=== PATIENT | female | born 1950 | race Caucasian/White ===

== ENCOUNTER 2020-07-04 07:24 | Outpatient (REF) | payer MEDICARE, SELFPAY | END 2020-07-04 07:25 | disposition home or self-care (01) | LOC: HO.MMNH2L 07:24 | PROVIDERS: Visit Provider Family Medicine | DX: Z20.828 Contact with and (suspected) exposure to other viral communicable diseases (principal) | CPT/HCPCS: 87635 ==

== ENCOUNTER 2020-07-11 19:02 | Outpatient (REF) | payer MEDICARE, SELFPAY | END 2020-07-11 19:03 | disposition home or self-care (01) | LOC: HO.LNP 19:02 | PROVIDERS: Visit Provider Family Medicine | DX: Z20.828 Contact with and (suspected) exposure to other viral communicable diseases (principal) | CPT/HCPCS: 87635 ==

== ENCOUNTER 2020-07-17 06:47 | Outpatient (REF) | payer MEDICARE, SELFPAY | END 2020-07-17 06:48 | disposition home or self-care (01) | LOC: HO.MMNH2L 06:47 | PROVIDERS: Visit Provider Family Medicine | DX: Z20.828 Contact with and (suspected) exposure to other viral communicable diseases (principal) | CPT/HCPCS: 87635 ==

== ENCOUNTER 2020-07-25 07:05 | Outpatient (REF) | payer MEDICARE, SELFPAY | END 2020-07-25 07:06 | disposition home or self-care (01) | LOC: HO.MMNH2L 07:05 | PROVIDERS: Visit Provider Family Medicine | DX: Z20.828 Contact with and (suspected) exposure to other viral communicable diseases (principal) | CPT/HCPCS: U0003 ==

== ENCOUNTER 2020-10-13 06:48 | Outpatient (REF) | payer SELFPAY ==
[2020-10-13 07:33] LABS: Hematocrit 34.6 % (37-47); Hemoglobin 11.4 g/dl (12.0-16.0); Mean Corpuscular HGB Conc 32.9 g/dl (31.0-35.0); Mean Corpuscular Hemoglobin 29.2 pg (27.0-33.0); Mean Corpuscular Volume 88.5 fL (80-98); Mean Platelet Volume 10.6 fL (9.4-12.3); Platelet Count 238 X10*3/uL (160-400); Red Blood Count 3.91 X10*6/uL (4.20-5.50); Red Cell Distribution Width 12.6 % (11.0-16.0); White Blood Count 7.6 X10*3/uL (4.8-10.8)
[2020-10-13 08:10] LABS: Thyroid Stimulating Hormone 0.58 uIU/mL (0.32-4.0); Vitamin D 25-OH Total 13.4 ng/mL (>30)
[2020-10-13 08:26] LABS: Alanine Aminotransferase 9 U/L (0-31); Albumin Level 3.6 g/dL (3.5-5.0); Alkaline Phosphatase 280 U/L (39-117); Anion Gap 19 (12-20); Aspartate Amino Transferase 9 U/L (5-31); Bilirubin Total 0.6 mg/dL (0.0-1.0); Blood Urea Nitrogen 38 mg/dL (9-16); Calcium 8.7 mg/dL (8.4-10.2); Carbon Dioxide 23 mmol/L (22-29); Chloride 93 mmol/L (96-108); Estimated Glomerular Filt Rate 10; Glucose Random 137 mg/dL (60-115); Potassium 3.8 mmol/l (3.3-5.1); Sodium 131 mmol/L (135-145); Total Protein 6.5 g/dL (6.5-8.0)
[2020-10-13 09:00] LABS: Estimated Average Glucose 157 mg/dL; Hemoglobin A1c % 7.1 %
== END 2020-10-13 06:49 | disposition home or self-care (01) ==
LOC: HO.MMNH2L 06:48
PROVIDERS: Visit Provider Family Medicine
DX: N18.6 End stage renal disease (principal)
CPT/HCPCS: 36415; 80053; 82306; 83036; 84443; 85027

== ENCOUNTER 2020-12-20 06:56 | Outpatient (REF) | payer MEDICAID, SELFPAY ==
[2020-12-20 07:14] LABS: Hematocrit 29.7 % (37-47); Hemoglobin 9.7 g/dl (12.0-16.0); Mean Corpuscular HGB Conc 32.7 g/dl (31.0-35.0); Mean Corpuscular Hemoglobin 29.5 pg (27.0-33.0); Mean Corpuscular Volume 90.3 fL (80-98); Mean Platelet Volume 10.7 fL (9.4-12.3); Platelet Count 236 X10*3/uL (160-400); Red Blood Count 3.29 X10*6/uL (4.20-5.50); Red Cell Distribution Width 12.9 % (11.0-16.0); White Blood Count 12.8 X10*3/uL (4.8-10.8)
[2020-12-20 07:44] LABS: Anion Gap 25 (12-20); Carbon Dioxide 17 mmol/L (22-29); Chloride 96 mmol/L (96-108); Potassium 4.6 mmol/L (3.3-5.1); Sodium 133 mmol/L (135-145)
[2020-12-20 07:45] LABS: Alanine Aminotransferase 7 U/L (0-31); Albumin Level 3.2 g/dL (3.5-5.0); Alkaline Phosphatase 206 U/L (39-117); Aspartate Amino Transferase 8 U/L (5-31); Bilirubin Total 0.8 mg/dL (0.0-1.0); Blood Urea Nitrogen 76 mg/dL (9-16); Calcium 9.2 mg/dL (8.4-10.2); Estimated Glomerular Filt Rate 5; Glucose Random 206 mg/dL (60-115); Total Protein 5.8 g/dL (6.5-8.0)
== END 2020-12-20 06:57 | disposition home or self-care (01) ==
LOC: HO.MMNH2L 06:56
PROVIDERS: Visit Provider Family Medicine
DX: N18.6 End stage renal disease (principal)
CPT/HCPCS: 36415; 80053; 85027

== ENCOUNTER 2020-12-20 10:58 | Inpatient (IN) | payer MEDICARE, MEDICAID, SELFPAY ==
[2020-12-20] VITALS (8 sets, daily range): BP systolic 128–163; BP diastolic 38–64; PULSE 50–56; RESP 14–18; TEMP 36.2–37.1; O2SAT 87–96; BMI 36.6; BMI 35.7
--- NOTE | ~2020-12-20 | XR_ITS ---
EXAMINATION: XR CHEST CLINICAL INFORMATION: Hypoxic COMPARISON: Chest x-ray 12/01/2018 TECHNIQUE: 2 views of the chest were obtained. FINDINGS: Cardiac silhouette is normal in size. Central pulmonary vasculature and interstitial markings are diffusely coarsened. There is no gross lobar consolidation. No pleural effusion or pneumothorax. Vascular stent projects over the left axilla. XR/XR chest 2V IMPRESSION: Radiographic findings are most suggestive of volume overload.
--- NOTE | ~2020-12-20 | CT_ITS ---
EXAMINATION: CT HIP WITHOUT CONTRAST, LEFT CLINICAL INFORMATION: Negative left hip x-ray. Pain. COMPARISON: None TECHNIQUE: Axial 2 mm thin and reformatted 1 mm thin sagittal and coronal images of left hip were obtained. This CT examination was performed using dose optimization techniques as appropriate, variously including the following: *Automated exposure control *Adjustment of mA and/or kV according to patient size (this includes techniques or standardized protocols for targeted exams where dose is matched to indication/reason for exam; i.e. extremities or head) *Use of iterative reconstruction technique DLP: 339 mGy-cm FINDINGS: There is minimal loss of left hip joint space with no visible acute fracture, dislocation or subluxation seen. The soft tissues are normal. CT/CT hip LT wo con IMPRESSION: Unremarkable left hip exam.
--- NOTE | 2020-12-20 12:16 | ECG_ITS ---
Test Reason : WEAKNESS Blood Pressure : / mmHG Vent. Rate : 053 BPM Atrial Rate : 053 BPM P-R Int : 244 ms QRS Dur : 132 ms QT Int : 460 ms P-R-T Axes : 059 -12 054 degrees QTc Int : 431 ms Sinus bradycardia with 1st degree A-V block Right bundle branch block Cannot rule out Anterior infarct (cited on or before 20-DEC-2020) Abnormal ECG When compared with ECG of 02-DEC-2018 07:40, Questionable change in initial forces of Anteroseptal leads T wave inversion no longer evident in Inferior leads Nonspecific T wave abnormality no longer evident in Anterior leads Referred By: Adwoa Dietrich Electronically Signed By:SERGIO JACK
--- NOTE | 2020-12-20 12:19 | ED.GENADULT ---
HPI - General Adult General Chief complaint: General Medical Stated complaint: LOW BACK PAIN S/P SAT TO HARD INTO W/C PER SNF Time Seen by Provider: 12/20/20 12:04 Source: EMS Mode of arrival: EMS Limitations: no limitations History of Present Illness HPI narrative: 70 yo female with past medical history of anemia, legally blind, Diabetes, End stage renal disease (, , tuesday), GERD (gastroesophageal reflux disease), HTN (hypertension), Hyperlipemia, Obesity here with complaints of left hip/buttocks pain s/p injury 2 days ago. Patient tells me that she sat down very hard in her wheelchair on and felt a snapping sensation in her left hip. Since then she has had pain which is [facility]relie[facility] She tells me due to the pain she did not go to dialysis on . She is also complaining of bilateral rib pain left greater than right with some mild shortness of breath. Noted to be hypoxic 88% for EMS. Patient is not on home oxygen. Denies fevers, chills, vomiting, diarrhea. Denies striking her ribs during the fall. Denies head injury or loss of consciousness. Related Data Home Medications Medication Instructions Recorded Confirmed B complex with C 20-folic acid 1 cap PO DAILY 12/20/20 12/20/20 [Triphrocaps] acetaminophen 650 mg PO QID PRN MDD 3000mg 12/20/20 12/20/20 amlodipine 10 mg PO DAILY 12/20/20 12/20/20 bisacodyl [Dulcolax (bisacodyl)] 10 mg CA DAILY PRN 12/20/20 12/20/20 dextrose [Glucose Gel] 1 ea PO NEEDED 12/20/20 12/20/20 diclofenac sodium 2 g TOPICAL QID 12/20/20 12/20/20 glucagon HCl [Glucagon (HCl) 1 mg SUBCUT Q20M PRN 12/20/20 12/20/20 Emergency Kit] insulin glargine See Protocol SUBCUT DAILY 12/20/20 12/20/20 insulin lispro 20 unit SUBCUT BEDTIME 12/20/20 12/20/20 insulin lispro [Humalog U-100 1 sliding scale dose SUBCUT 12/20/20 12/20/20 Insulin] USEASDIRECTD lidocaine-prilocaine See Rx Instructions .ROUTE .COMPLEX 12/20/20 12/20/20 omeprazole 20 mg PO DAILY 12/20/20 12/20/20 ondansetron HCl [Zofran] 4 mg PO Q8H PRN 12/20/20 12/20/20 rosuvastatin [Crestor] 5 mg PO DAILY 12/20/20 12/20/20 sodium phosphates [Fleet Enema] 118 ml CA DAILY PRN 12/20/20 12/20/20 Allergies Allergy/AdvReac Type Severity Reaction Status Date / Time bacitracin [Bacitracin] Allergy Mild RASH Unverified 06/12/20 17:37 egg [Egg] Allergy Mild UNKNOWN Unverified 06/12/20 17:37 hydrogen peroxide Allergy Mild RASH Unverified 06/12/20 17:37 [Hydrogen Peroxide] strawberry [[place]] Allergy Mild BLISTERS Unverified 06/12/20 17:37 acetaminophen [Percocet] Allergy Unknown Verified 07/12/18 00:00 bacitracin Allergy Unknown redness Unverified 10/23/19 00:00 eggs Allergy Unknown itchy, Unverified 10/23/19 00:00 rash--skin only oxycodone [Percocet] Allergy Unknown Verified 07/12/18 00:00 Sulfa (Sulfonamide Allergy Unknown Verified 07/12/18 00:00 Antibiotics) Shellfish Allergy Mild UNKNOWN Uncoded 06/12/20 17:37 baking soda Allergy Unknown Uncoded 07/12/18 00:00 elastic Allergy Unknown itchy Uncoded 10/23/19 00:00 hydrogen peroxide Allergy Unknown redness Uncoded 10/23/19 00:00 latex Allergy Unknown itchy Uncoded 10/23/19 00:00 seafood Allergy Unknown itchy Uncoded 10/23/19 00:00 skin, rash shellfish Allergy Unknown Uncoded 07/12/18 00:00 strawberry Allergy Unknown Uncoded 10/23/19 00:00 Sulfamethoxazole Allergy Unknown vomiting Uncoded 10/23/19 00:00 Atorvastatin AdvReac Unknown back Uncoded 07/12/18 00:00 pains, abdominal pains, myalgias Review of Systems Review of Systems: Yes all other systems are reviewed and are negative Constitutional: Constitutional: Reports no additional constitutional complaints, Denies body ache(s), Denies chills, Denies fever(s), Denies headache(s) and Denies weakness Eyes: Eyes: Reports no additional eye complaints and Denies change in vision ENT: Reports system reviewed and no additional complaints, except as documented, Denies dizziness, Denies headache(s), Denies nasal congestion, Denies nasal discharge and Denies neck pain Cardiovascular: Cardiovascular: Reports no additional cardiovascular complaints, Denies chest pain, Denies leg edema and Denies dyspnea Respiratory: Respiratory: Reports no additional respiratory complaints, Denies cough and Denies dyspnea Gastrointestinal: Gastrointestinal: Reports no additional gastrointestinal complaints, Denies abdominal pain, Denies diarrhea, Denies nausea and Denies vomiting Genitourinary: Genitourinary: Reports no additional female genitourinary complaints and Denies urinary incontinence Musculoskeletal: Musculoskeletal: Reports no additional musculoskeletal complaints, Denies back pain, Reports arthralgias, Denies joint swelling, Denies neck pain, Denies numbness and Denies tingling Integumentary/Breasts: Skin/Breast: Reports system reviewed and no additional complaints, except as docu and Denies rash Neurologic: Reports system reviewed and no additional complaints, except as documented, Denies Abnormal speech present, Denies dizziness, Denies headache(s), Denies numbness, Denies tingling and Denies weakness PMFSH Past Medical History Attestation statement: The following information was validated with the patient. Source: old records reviewed and nursing notes reviewed Medical History Anemia Blind Diabetes End stage renal disease GERD (gastroesophageal reflux disease) HTN (hypertension) Hyperlipemia Obesity Social History Social History Smoked in Last 30 Days: No Use of substances other than those prescribed or required for medical reasons: No Advance Directives: Yes Advance Directives Information Provided: Yes Advance Directives on File: No Advance Directives Date on File: 12/21/07 Physical Exam Vital Signs: Vital Signs: Last Vital Signs Temp 98.6 F 12/20/20 15:16 Pulse 50 12/20/20 15:16 Resp 18 12/20/20 15:52 BP 141/64 H 12/20/20 15:52 Pulse Ox 95 12/20/20 15:16 Body Mass Index 36.6 Const: General: cooperative, healthy appearing, comfortable and no acute distress Orientation/consciousness: patient oriented x3 Limitations: no limitations HENMT: Head: Yes normal to inspection Ears: hearing grossly normal bilaterally General nose exam: Normal external nose present Face and sinus: Yes normal facial exam Mouth: Normal oral and palatal mucosa present Throat: Yes posterior oropharynx normal Eyes: General: appearance normal, both eyes and all related structures Pupils: Equal, round and reactive pupils present Neck: Neck: Yes normal visual inspection Chest: Other: L>R anterior and posterior rib pain with no ecchymosis, crepitus or deformity. Worsened with deep breathing and palpation Chest palpation & inspection: normal inspection of the chest Resp: Effort & Inspection: normal respiratory effort Auscultation: clear to auscultation bilaterally Cardio: Rate: regular rate Rhythm: regular rhythm Peripheral pulses: Peripheral pulses 2+ throughout GI: Inspection: Yes normal to inspection Palpation (GI): Soft to palpation and nontender Auscultation: normal bowel sounds Back/Spine/Pelvis: Thoracic/Lumbar Spine: thoracic and lumbar spine normal to inspection Skin: General skin exam: no rashes or lesions noted Neuro: General: patient oriented x3, no focal motor deficits and normal sensation to monofilament Cranial nerves: Yes Equal, round and reactive pupils present Cognition (Neuro): normal cognition Speech: No Abnormal speech present Gait exam (Neuro): Normal gait present Motor exam (neuro): 5/5 motor strength present throughout Extrem: Other: To the left posterior hip and lateral hip there is tenderness as well as in the buttocks. There is no obvious deformity, shortening or rotation of the extremity. Pain with ROM. General: Yes normal to inspection, Yes no joint enlargement and Yes edema (1+nonpitting edema extending over the ankles. No warmth/.erythema. 2 +puls) Course Course Course Narrative: 70-year-old female here with complaints of left hip and buttocks pain status post injury 2 days ago with negative x-rays done outpatient [facility]. Also complaining of bilateral rib pain with some mild shortness of breath with no cough or fever. Patient missed 1 day of dialysis and was noted to be hypoxic 88% on room air for EMS. On arrival has tenderness over the posterior and lateral left hip with no obvious deformity, shortening or rotation but does have pain with range of motion. X-rays negative him yesterday. Due to continued pain will check CT hip to eval for fracture. Also complaining of bilateral rib pain with some mild shortness of breath, hypoxia and a missed dialysis today. Noted to have a low-grade fever on arrival 99.9 rectal. Will check chest x-ray, UA, labs, EKG, COVID screen. 1320-labs show renal failure. Potassium normal. Elevated troponin which is likely secondary to creatinine and not from ACS. EKG shows no ischemic changes. We will plan for repeat 3 hour troponin. 1445-UA c/w UTI. At this time infection is suspected. Antibiotics ordered. Due to worsening renal function, missed dialysis today and hypoxia with chest x-ray concerning for fluid overload will discuss with nephrology for dialysis today. 1450-discussed with Dr. Moreira who arranged for dialysis today. Discussed with Dr. Prasad who admitted the patient. Medical Decision Making MDM Narrative Medical decision making narrative: Viral syndrome, pneumonia, chest wall strain versus contusion, PE, ACS UTI, COVID-19, CHF/missed dialysis fx vs contusion vs sprain Lab Data Result diagrams: 12/20/20 12:41 12/20/20 12:41 Labs: Lab Results 12/20/20 12/20/20 12/20/20 Range/Units 12:41 12:41 12:41 WBC 11.9 H (4.8-10.8) X10*3/uL RBC 3.19 L (4.20-5.50) X10*6/uL Hgb 9.5 L (12.0-16.0) g/dl Hct 29.1 L (37-47) % MCV 91.2 (80-98) fL MCH 29.8 (27.0-33.0) pg MCHC 32.6 (31.0-35.0) g/dl RDW 13.0 (11.0-16.0) % Plt Count 236 (160-400) X10*3/uL MPV 10.8 (9.4-12.3) fL Immature Gran % (Auto) 0.6 H (0.0-0.4) % Neut % (Auto) 85.5 H (45-73) % Lymph % (Auto) 7.9 L (20-40) % [place] % (Auto) 5.6 (2-11) % Eos % (Auto) 0.2 (0-4) % Baso % (Auto) 0.2 (0-2) % Lymph # (Auto) 0.9 L (1.2-4.9) X10*3/uL [place] # (Auto) 0.7 (0.1-1.2) X10*3/uL Eos # (Auto) 0.0 (0.0-0.4) X10*3/uL Baso # (Auto) 0.0 (0.0-0.2) X10*3/uL Abs Immat Gran (auto) 0.07 H (0.00-0.03) X10*3/uL Absolute Neuts (auto) 10.1 H (2.0-8.3) X10*3/uL Absolute Nucleated RBC 0.000 (0.0-0.012) X10*3/uL Nucleated RBC % (auto) 0.0 (0.0-0.2) /100WBC PT 14.1 H (10.8-13.0) SEC INR 1.2 H (0.9-1.1) Sodium 132 L (135-145) mmol/L Potassium 5.0 (3.3-5.1) mmol/L Chloride 96 (96-108) mmol/L Carbon Dioxide 14 L (22-29) mmol/L Anion Gap 27 H (12-20) BUN 82 H* (9-16) mg/dL Creatinine 8.35 H* (0.5-1.4) mg/dL Estim Creat Clear Calc 6.4 Estimated GFR 5 POC Glucose (60-115) mg/dL Random Glucose 266 H (60-115) mg/dL Lactic Acid (0.5-2.0) mmol/L Calcium 9.2 (8.4-10.2) mg/dL Magnesium 2.0 (1.6-2.6) mg/dL Total Bilirubin 0.4 (0.0-1.0) mg/dL Direct Bilirubin < 0.2 (0.0-0.5) mg/dL AST 14 D (5-31) U/L ALT < 6 (0-31) U/L Alkaline Phosphatase 198 H (39-117) U/L Troponin I High Sens (<3.5-17.0) ng/L Total Protein 6.2 L (6.5-8.0) g/dL Albumin 3.1 L (3.5-5.0) g/dL Urine Color Urine Appearance Urine pH (5.0-8.0) Ur Specific [place] (1.005-1.025) Urine Protein (NEG-TRACE) MG/DL Urine Glucose (UA) (NEG) MG/DL Urine Ketones (NEG) MG/DL Urine Blood (NEG) Urine Nitrite (NEG) Ur Leukocyte Esterase (NEG) Urine RBC (0) /HPF Urine WBC (0-4) /HPF Urine WBC Clumps Ur Squamous Epith Cells /LPF Urine Bacteria /LPF COVID-19 ([facility]UANITA) (Negative) COVID-19 Clin Com 12/20/20 12/20/20 12/20/20 Range/Units 12:41 12:41 12:45 WBC (4.8-10.8) X10*3/uL RBC (4.20-5.50) X10*6/uL Hgb (12.0-16.0) g/dl Hct (37-47) % MCV (80-98) fL MCH (27.0-33.0) pg MCHC (31.0-35.0) g/dl RDW (11.0-16.0) % Plt Count (160-400) X10*3/uL MPV (9.4-12.3) fL Immature Gran % (Auto) (0.0-0.4) % Neut % (Auto) (45-73) % Lymph % (Auto) (20-40) % [place] % (Auto) (2-11) % Eos % (Auto) (0-4) % Baso % (Auto) (0-2) % Lymph # (Auto) (1.2-4.9) X10*3/uL [place] # (Auto) (0.1-1.2) X10*3/uL Eos # (Auto) (0.0-0.4) X10*3/uL Baso # (Auto) (0.0-0.2) X10*3/uL Abs Immat Gran (auto) (0.00-0.03) X10*3/uL Absolute Neuts (auto) (2.0-8.3) X10*3/uL Absolute Nucleated RBC (0.0-0.012) X10*3/uL Nucleated RBC % (auto) (0.0-0.2) /100WBC PT (10.8-13.0) SEC INR (0.9-1.1) Sodium (135-145) mmol/L Potassium (3.3-5.1) mmol/L Chloride (96-108) mmol/L Carbon Dioxide (22-29) mmol/L Anion Gap (12-20) BUN (9-16) mg/dL Creatinine (0.5-1.4) mg/dL Estim Creat Clear Calc Estimated GFR POC Glucose (60-115) mg/dL Random Glucose (60-115) mg/dL Lactic Acid 1.6 (0.5-2.0) mmol/L Calcium (8.4-10.2) mg/dL Magnesium (1.6-2.6) mg/dL Total Bilirubin (0.0-1.0) mg/dL Direct Bilirubin (0.0-0.5) mg/dL AST (5-31) U/L ALT (0-31) U/L Alkaline Phosphatase (39-117) U/L Troponin I High Sens 81.8 H (<3.5-17.0) ng/L Total Protein (6.5-8.0) g/dL Albumin (3.5-5.0) g/dL Urine Color Urine Appearance Urine pH (5.0-8.0) Ur Specific [place] (1.005-1.025) Urine Protein (NEG-TRACE) MG/DL Urine Glucose (UA) (NEG) MG/DL Urine Ketones (NEG) MG/DL Urine Blood (NEG) Urine Nitrite (NEG) Ur Leukocyte Esterase (NEG) Urine RBC (0) /HPF Urine WBC (0-4) /HPF Urine WBC Clumps Ur Squamous Epith Cells /LPF Urine Bacteria /LPF COVID-19 ([facility]UANITA) Negative (Negative) COVID-19 Clin Com See Note 12/20/20 12/20/20 12/20/20 Range/Units 14:21 15:41 15:42 WBC (4.8-10.8) X10*3/uL RBC (4.20-5.50) X10*6/uL Hgb (12.0-16.0) g/dl Hct (37-47) % MCV (80-98) fL MCH (27.0-33.0) pg MCHC (31.0-35.0) g/dl RDW (11.0-16.0) % Plt Count (160-400) X10*3/uL MPV (9.4-12.3) fL Immature Gran % (Auto) (0.0-0.4) % Neut % (Auto) (45-73) % Lymph % (Auto) (20-40) % [place] % (Auto) (2-11) % Eos % (Auto) (0-4) % Baso % (Auto) (0-2) % Lymph # (Auto) (1.2-4.9) X10*3/uL [place] # (Auto) (0.1-1.2) X10*3/uL Eos # (Auto) (0.0-0.4) X10*3/uL Baso # (Auto) (0.0-0.2) X10*3/uL Abs Immat Gran (auto) (0.00-0.03) X10*3/uL Absolute Neuts (auto) (2.0-8.3) X10*3/uL Absolute Nucleated RBC (0.0-0.012) X10*3/uL Nucleated RBC % (auto) (0.0-0.2) /100WBC PT (10.8-13.0) SEC INR (0.9-1.1) Sodium (135-145) mmol/L Potassium (3.3-5.1) mmol/L Chloride (96-108) mmol/L Carbon Dioxide (22-29) mmol/L Anion Gap (12-20) BUN (9-16) mg/dL Creatinine (0.5-1.4) mg/dL Estim Creat Clear Calc Estimated GFR POC Glucose 219 H (60-115) mg/dL Random Glucose (60-115) mg/dL Lactic Acid (0.5-2.0) mmol/L Calcium (8.4-10.2) mg/dL Magnesium (1.6-2.6) mg/dL Total Bilirubin (0.0-1.0) mg/dL Direct Bilirubin (0.0-0.5) mg/dL AST (5-31) U/L ALT (0-31) U/L Alkaline Phosphatase (39-117) U/L Troponin I High Sens 63.7 H (<3.5-17.0) ng/L Total Protein (6.5-8.0) g/dL Albumin (3.5-5.0) g/dL Urine Color YELLOW Urine Appearance CLOUDY Urine pH 7.0 (5.0-8.0) Ur Specific [place] 1.025 (1.005-1.025) Urine Protein 2+ H (NEG-TRACE) MG/DL Urine Glucose (UA) 250 H (NEG) MG/DL Urine Ketones 5 (NEG) MG/DL Urine Blood 2+ H (NEG) Urine Nitrite NEG (NEG) Ur Leukocyte Esterase TRACE H (NEG) Urine RBC 15-29 H (0) /HPF Urine WBC TNTC H (0-4) /HPF Urine WBC Clumps NOTED Ur Squamous Epith Cells 2+ /LPF Urine Bacteria 4+ /LPF COVID-19 ([facility]ITA) (Negative) COVID-19 Clin Com Imaging Data Chest x-ray: Attestation: I personally reviewed and interpreted this imaging study as follows: Radiologist's impression: EXAMINATION: XR CHEST CLINICAL INFORMATION: Hypoxic COMPARISON: Chest x-ray 12/01/2018 TECHNIQUE: 2 views of the chest were obtained. FINDINGS: Cardiac silhouette is normal in size. Central pulmonary vasculature and interstitial markings are diffusely coarsened. There is no gross lobar consolidation. No pleural effusion or pneumothorax. Vascular stent projects over the left axilla. XR/XR chest 2V IMPRESSION: Radiographic findings are most suggestive of volume overload. CT left hip: Attestation: I personally reviewed and interpreted this imaging study as follows: Radiologist's impression: EXAMINATION: CT HIP WITHOUT CONTRAST, LEFT CLINICAL INFORMATION: Negative left hip x-ray. Pain. COMPARISON: None TECHNIQUE: Axial 2 mm thin and reformatted 1 mm thin sagittal and coronal images of left hip were obtained. This CT examination was performed using dose optimization techniques as appropriate, variously including the following: *Automated exposure control *Adjustment of mA and/or kV according to patient size (this includes techniques or standardized protocols for targeted exams where dose is matched to indication/reason for exam; i.e. extremities or head) *Use of iterative reconstruction technique DLP: 339 mGy-cm FINDINGS: There is minimal loss of left hip joint space with no visible acute fracture, dislocation or subluxation seen. The soft tissues are normal. CT/CT hip LT wo con IMPRESSION: Unremarkable left hip exam. ECG Data Attestation: I personally reviewed and interpreted this ECG as follows: Interpretation: SB with 1st degree av block, RBBB, normal pr, normal qtc Discharge Plan Discharge Clinical Impression: UTI (urinary tract infection), Renal failure (ARF), acute on chronic Contusion Qualifiers: Encounter type: initial encounter Contusion area: hip Laterality: left Qualified Code(s): S70.02XA - Contusion of left hip, initial encounter Patient Disposition: Admitted As Inpatient
[2020-12-20] MEDS: Lidocaine 4 % Patch ADH..PATCH 1 PATCH TRANSDERMA (12:26)
[2020-12-20] MEDS: Cyclobenzaprine HCl 10 MG TABLET PO (12:27)
[2020-12-20] MEDS: Acetaminophen 325 MG TABLET 650 MG PO (12:27)
[2020-12-20 12:46] LABS: MANUAL DIFF FLAG NO
[2020-12-20 12:47] LABS: Basophils Percent Auto 0.2 % (0-2); Eosinophils Percent Auto 0.2 % (0-4); Hematocrit 29.1 % (37-47); Hemoglobin 9.5 g/dl (12.0-16.0); Imm Gran Abs Auto 0.07 X10*3/uL (0.00-0.03); Imm Gran Pct Auto 0.6 % (0.0-0.4); Lymphocytes Absolute Auto 0.9 X10*3/uL (1.2-4.9); Lymphocytes Percent Auto 7.9 % (20-40); Mean Corpuscular HGB Conc 32.6 g/dl (31.0-35.0); Mean Corpuscular Hemoglobin 29.8 pg (27.0-33.0); Mean Corpuscular Volume 91.2 fL (80-98); Mean Platelet Volume 10.8 fL (9.4-12.3); Monocytes Absolute Auto 0.7 X10*3/uL (0.1-1.2); Monocytes Percent Auto 5.6 % (2-11); Neutrophils Absolute Auto 10.1 X10*3/uL (2.0-8.3); Neutrophils Percent Auto 85.5 % (45-73); Platelet Count 236 X10*3/uL (160-400); Red Blood Count 3.19 X10*6/uL (4.20-5.50); White Blood Count 11.9 X10*3/uL (4.8-10.8)
[2020-12-20 12:53] LABS: INTERNATIONAL NORM RATIO 1.2 (0.9-1.1); Prothrombin Time 14.1 SEC (10.8-13.0)
[2020-12-20 13:05] LABS: Lactic Acid 1.6 mmol/L (0.5-2.0)
[2020-12-20 13:16] LABS: COVID-19 Test Negative (Negative)
[2020-12-20 13:17] LABS: Alanine Aminotransferase < 6 U/L (0-31); Albumin Level 3.1 g/dL (3.5-5.0); Alkaline Phosphatase 198 U/L (39-117); Anion Gap 27 (12-20); Aspartate Amino Transferase 14 U/L (5-31); Bilirubin Direct < 0.2 mg/dL (0.0-0.5); Bilirubin Total 0.4 mg/dL (0.0-1.0); Blood Urea Nitrogen 82 mg/dL (9-16); Calcium 9.2 mg/dL (8.4-10.2); Carbon Dioxide 14 mmol/L (22-29); Chloride 96 mmol/L (96-108); Creatinine Clr Calc Pharmacy 6.4; Estimated Glomerular Filt Rate 5; Glucose Random 266 mg/dL (60-115); Sodium 132 mmol/L (135-145); Total Protein 6.2 g/dL (6.5-8.0)
[2020-12-20 13:19] LABS: Troponin-I High Sensitivity 81.8 ng/L (<3.5-17.0)
[2020-12-20 14:29] LABS: Glucose Urine UA 250 MG/DL (NEG); Leukocyte Esterase Urine TRACE (NEG); Nitrite Urine NEG (NEG); Specific Gravity - Urine 1.025 (1.005-1.025); UACC Culture Trigger YES; Urine Blood 2+ (NEG); Urine Ketones 5 MG/DL (NEG); Urine Protein 2+ MG/DL (NEG-TRACE)
[2020-12-20 14:30] LABS: Appearance Urine CLOUDY; Color Urine YELLOW
[2020-12-20 14:44] LABS: Bacteria Urine 4+ /LPF; Squamous Epithelial Cell Urine 2+ /LPF; WBC Clumps Urine NOTED; WBC Urine TNTC /HPF (0-4)
[2020-12-20] MEDS: cefTRIAXone sodium 1 GM in 0.9 % Sodium Chloride 50 ML IV (14:56)
[2020-12-20] MEDS: 0.9 % Sodium Chloride Flush 3 ML SYRINGE IVFLUSH ×2 (15:30→23:52)
--- NOTE | 2020-12-20 16:30 | PC.NURSE ---
1600: pt to dialysis now.
[2020-12-20 16:54] LABS: Troponin-I High Sensitivity 63.7 ng/L (<3.5-17.0)
--- NOTE | 2020-12-20 17:16 | PM.IMHP ---
History of Present Illness Date of Service: 12/20/20 Chief Complaint: Back pain, missed dialysis, fluid overload. A 70 years old lady with PMH of diabetes, ESRD, legally blind, GERD, obesity among others who presented to the hospital complaining of left hip pain for the last 2 days. The patient reports she fell on the chair while she was trying to sit on wheelchair couple days ago and she started to have pain since then. She was not able to go to dialysis on because of the. Pain did not improve with Tylenol. Noted to low oxygen level by EMS of 88%. In the emergency she was noted to have urine infection and started on antibiotics. Nephrology was contacted for urgent dialysis for fluid overload as shown on chest x-ray. A CT scan of the head negative for any acute injury or fracture. Review of Systems Review of Systems: No fever, chills or weakness No chest pain, palpitation No shortness of breath or coughing No abdominal pain, nausea or vomiting No urinary symptoms Left hip and leg pain No any rash or wounds PMFSH Medical History Anemia Blind Diabetes End stage renal disease GERD (gastroesophageal reflux disease) HTN (hypertension) Hyperlipemia Obesity Social History Smoked in Last 30 Days: No Use of substances other than those prescribed or required for medical reasons: No Advance Directives: Yes Advance Directives Information Provided: Yes Advance Directives on File: No Advance Directives Date on File: 12/21/07 Meds Allergies Allergy/AdvReac Type Severity Reaction Status Date / Time bacitracin [Bacitracin] Allergy Mild RASH Unverified 06/12/20 17:37 egg [Egg] Allergy Mild UNKNOWN Unverified 06/12/20 17:37 hydrogen peroxide Allergy Mild RASH Unverified 06/12/20 17:37 [Hydrogen Peroxide] strawberry [Lafe] Allergy Mild BLISTERS Unverified 06/12/20 17:37 acetaminophen [Percocet] Allergy Unknown Verified 07/12/18 00:00 bacitracin Allergy Unknown redness Unverified 10/23/19 00:00 eggs Allergy Unknown itchy, Unverified 10/23/19 00:00 rash--skin only oxycodone [Percocet] Allergy Unknown Verified 07/12/18 00:00 Sulfa (Sulfonamide Allergy Unknown Verified 07/12/18 00:00 Antibiotics) Shellfish Allergy Mild UNKNOWN Uncoded 06/12/20 17:37 baking soda Allergy Unknown Uncoded 07/12/18 00:00 elastic Allergy Unknown itchy Uncoded 10/23/19 00:00 hydrogen peroxide Allergy Unknown redness Uncoded 10/23/19 00:00 latex Allergy Unknown itchy Uncoded 10/23/19 00:00 seafood Allergy Unknown itchy Uncoded 10/23/19 00:00 skin, rash shellfish Allergy Unknown Uncoded 07/12/18 00:00 strawberry Allergy Unknown Uncoded 10/23/19 00:00 Sulfamethoxazole Allergy Unknown vomiting Uncoded 10/23/19 00:00 Atorvastatin AdvReac Unknown back Uncoded 07/12/18 00:00 pains, abdominal pains, myalgias Active Medications: Current Medications Generic Name Dose Route Start Last Admin Trade Name Freq PRN Reason Stop Dose Admin Acetaminophen 650 mg 12/20/20 15:52 Acetaminophen 325 Mg Tablet PO QID PRN pain Amlodipine Besylate 10 mg 12/21/20 09:00 Amlodipine Besylate 10 Mg Tablet PO DAILY [facility] Protocol Bisacodyl 10 mg 12/20/20 15:52 Bisacodyl 10 Mg Supp.Rect [place] DAILY PRN Constipation Glucose 15 gm 12/21/20 09:00 Glucose Gel 15 Gm Gel..Gram. PO DAILY PRN LOW BLOOD SUGAR Heparin Sodium (Porcine) 5,000 unit 12/20/20 18:00 Heparin Sodium,Porcine 5,000 Unit/Ml Vial SUBCUT Q12H [facility] Ceftriaxone Sodium 1 gm/ 50 mls @ 100 mls/hr 12/21/20 14:00 Sodium Chloride IV Q24H [facility] Insulin Human Lispro 0 unit 12/20/20 16:30 Insulin Lispro 100 Unit/Ml 3 Ml Vial SUBCUT QIDACHS [facility] Protocol Omeprazole 20 mg 12/21/20 06:30 Omeprazole 20 Mg Capsule.Dr PO DAILY@0630 [facility] Ondansetron HCl 4 mg 12/20/20 15:52 Ondansetron Hcl 4 Mg/2 Ml Vial IVPUSH Q8H PRN Nausea and Vomiting Pharmacy Consult 1 each 12/20/20 14:45 Consult Rx Perform Med Rec MISCELLANE ONCE PRN Consult order Sodium Biphosphate/Sodium Phosphate 118 ml 12/20/20 15:52 Sodium Phosphate,[place]-Dibasic 133 Ml Enema [place] DAILY PRN Constipation Sodium Chloride 3 ml 12/20/20 16:00 12/20/20 15:30 0.9 % Sodium Chloride Flush 3 Ml Syringe IVFLUSH 3 ml QSHIFT [facility] Administration Vitamin B Complex/Folic Acid 1 cap 12/21/20 09:00 B Complex W-C No.20/Folic Acid Capsule PO DAILY [facility] Home Medications Medication Instructions Recorded Confirmed Last Taken Type B complex with C 20-folic acid 1 cap PO DAILY 12/20/20 12/20/20 Unknown History [Triphrocaps] acetaminophen 650 mg PO QID PRN MDD 3000mg 12/20/20 12/20/20 Unknown History amlodipine 10 mg PO DAILY 12/20/20 12/20/20 Unknown History bisacodyl [Dulcolax (bisacodyl)] 10 mg [place] DAILY PRN 12/20/20 12/20/20 Unknown History dextrose [Glucose Gel] 1 ea PO NEEDED 12/20/20 12/20/20 Unknown History diclofenac sodium 2 g TOPICAL QID 12/20/20 12/20/20 Unknown History glucagon HCl [Glucagon (HCl) 1 mg SUBCUT Q20M PRN 12/20/20 12/20/20 Unknown History Emergency Kit] insulin glargine See Protocol SUBCUT DAILY 12/20/20 12/20/20 Unknown History insulin lispro 20 unit SUBCUT BEDTIME 12/20/20 12/20/20 Unknown History insulin lispro [Humalog U-100 1 sliding scale dose SUBCUT 12/20/20 12/20/20 Unknown History Insulin] USEASDIRECTD lidocaine-prilocaine See Rx Instructions .ROUTE .COMPLEX 12/20/20 12/20/20 Unknown History omeprazole 20 mg PO DAILY 12/20/20 12/20/20 Unknown History ondansetron HCl [Zofran] 4 mg PO Q8H PRN 12/20/20 12/20/20 Unknown History rosuvastatin [Crestor] 5 mg PO DAILY 12/20/20 12/20/20 Unknown History sodium phosphates [Fleet Enema] 118 ml [place] DAILY PRN 12/20/20 12/20/20 Unknown History Physical Exam Vital Signs and Narrative: Vital Signs: Last Vital Signs Temp 98.6 F 12/20/20 15:16 Pulse 50 12/20/20 15:16 Resp 14 12/20/20 15:16 BP 150/47 H 12/20/20 15:16 Pulse Ox 95 12/20/20 15:16 Body Mass Index 36.6 Const: Other: Constitutional : Alert, oriented, not in distress, legally blind Neck : Normal inspection, Supple Cardiovascular : RRR, S1 S2, +1 bilateral lower extremity edema Respiratory : Failure bilateral air entry decreased at the bases, bilateral basal fine crackles, wheezes or rhonchi Gastrointestinal: soft, lax, Normal bowel sounds, Non tender Skin : Warm/Dry, No rash Muscular, left leg thigh pain, no erythema Neurological : Alert & oriented x3, No focal deficit Results Labs CBC and Chem 7: 12/20/20 12:41 12/20/20 12:41 Labs: Laboratory Results - last 24 hr 12/20/20 12/20/20 12/20/20 12:41 12:41 12:41 MCV 91.2 MCH 29.8 MCHC 32.6 RDW 13.0 Plt Count 236 MPV 10.8 Immature Gran % (Auto) 0.6 H Neut % (Auto) 85.5 H Lymph % (Auto) 7.9 L [place] % (Auto) 5.6 Eos % (Auto) 0.2 Baso % (Auto) 0.2 Lymph # (Auto) 0.9 L [place] # (Auto) 0.7 Eos # (Auto) 0.0 Baso # (Auto) 0.0 Abs Immat Gran (auto) 0.07 H Absolute Neuts (auto) 10.1 H Absolute Nucleated RBC 0.000 Nucleated RBC % (auto) 0.0 PT 14.1 H INR 1.2 H Anion Gap 27 H Estim Creat Clear Calc 6.4 Estimated GFR 5 Random Glucose 266 H Lactic Acid Calcium 9.2 Magnesium 2.0 Total Bilirubin 0.4 Direct Bilirubin < 0.2 AST 14 D ALT < 6 Alkaline Phosphatase 198 H Troponin I High Sens Total Protein 6.2 L Albumin 3.1 L Urine Color Urine Appearance Urine pH Ur Specific [place] Urine Protein Urine Glucose (UA) Urine Ketones Urine Blood Urine Nitrite Ur Leukocyte Esterase Urine RBC Urine WBC Urine WBC Clumps Ur Squamous Epith Cells Urine Bacteria COVID-19 (JUANITA) COVID-19 Clin Com 12/20/20 12/20/20 12/20/20 12:41 12:41 12:45 MCV MCH MCHC RDW Plt Count MPV Immature Gran % (Auto) Neut % (Auto) Lymph % (Auto) [place] % (Auto) Eos % (Auto) Baso % (Auto) Lymph # (Auto) [place] # (Auto) Eos # (Auto) Baso # (Auto) Abs Immat Gran (auto) Absolute Neuts (auto) Absolute Nucleated RBC Nucleated RBC % (auto) PT INR Anion Gap Estim Creat Clear Calc Estimated GFR Random Glucose Lactic Acid 1.6 Calcium Magnesium Total Bilirubin Direct Bilirubin AST ALT Alkaline Phosphatase Troponin I High Sens 81.8 H Total Protein Albumin Urine Color Urine Appearance Urine pH Ur Specific [place] Urine Protein Urine Glucose (UA) Urine Ketones Urine Blood Urine Nitrite Ur Leukocyte Esterase Urine RBC Urine WBC Urine WBC Clumps Ur Squamous Epith Cells Urine Bacteria COVID-19 (JUANITA) Negative COVID-19 SMRxT See Note 12/20/20 12/20/20 14:21 15:42 MCV MCH MCHC RDW Plt Count MPV Immature Gran % (Auto) Neut % (Auto) Lymph % (Auto) [place] % (Auto) Eos % (Auto) Baso % (Auto) Lymph # (Auto) [place] # (Auto) Eos # (Auto) Baso # (Auto) Abs Immat Gran (auto) Absolute Neuts (auto) Absolute Nucleated RBC Nucleated RBC % (auto) PT INR Anion Gap Estim Creat Clear Calc Estimated GFR Random Glucose Lactic Acid Calcium Magnesium Total Bilirubin Direct Bilirubin AST ALT Alkaline Phosphatase Troponin I High Sens 63.7 H Total Protein Albumin Urine Color YELLOW Urine Appearance CLOUDY Urine pH 7.0 Ur Specific [place] 1.025 Urine Protein 2+ H Urine Glucose (UA) 250 H Urine Ketones 5 Urine Blood 2+ H Urine Nitrite NEG Ur Leukocyte Esterase TRACE H Urine RBC 15-29 H Urine WBC TNTC H Urine WBC Clumps NOTED Ur Squamous Epith Cells 2+ Urine Bacteria 4+ COVID-19 (JUANITA) COVID-19 [employer] Imaging Radiologist's Impressions: Impressions Chest X-Ray 12/20/20 12:16 IMPRESSION: Radiographic findings are most suggestive of volume overload. Hip CT 12/20/20 12:17 IMPRESSION: Unremarkable left hip exam. Assessment and Plan (1) ESRD (end stage renal disease) on dialysis: Status: Acute (2) Fluid overload: Status: Acute (3) UTI (urinary tract infection): Status: Acute (4) Hip pain, left: Status: Acute A 70 years old lady with PMH of diabetes, ESRD, legally blind, GERD, obesity among others who presented to the hospital complaining of left hip pain for the last 2 days. Missed dialysis 2 days ago and noticed to have fluid overload. Acute hypoxia Secondary to Fluid overload Missed dialysis, CXR showing fluid overload, will need dialysis today ESRD needs dialysis Patient last dialysis was on Tuesday Nephrology contacted, to dialysis today Monitor fluid status UTI Pending cultures Continue ceftriaxone Left neck pain From injury XR, CT scan negative for any acute fracture Pain management DVT PPX Heparin
--- NOTE | 2020-12-20 17:55 | PC.NURSE ---
contact made to hospiatlist due to patient refusing dialysis after bieng on for 45 minutes. contact made to hospitalist per hospitalist, plan to order morphine or xanax to make patient more comfortable. current vs 141/64 hr 49. awaiting orders.
[2020-12-20] MEDS: Heparin Sodium,Porcine 5,000 UNIT/ML VIAL 5000 UNIT SUBCUT (18:10)
[2020-12-20] MEDS: Morphine Sulfate 2 MG/ML CARTRIDGE 1 MG IVPUSH (18:10)
[2020-12-20] MEDS: ALPRAZolam 0.25 MG TABLET PO (18:10)
[2020-12-20 18:22] LABS: Glucose, Whole Blood 219 mg/dL (60-115)
--- NOTE | 2020-12-20 19:44 | PC.NURSE ---
ATTEMPTED TO GIVE REPORT MAYRA HINDS TO TAKE REPORT. ROOM ASSIGNMENT AND INITIAL CALL TAKEN BY ELEUTERIO.
--- NOTE | 2020-12-20 19:59 | PC.NURSE ---
ATTEMPTED TO GIVE REPORT TO MAYRA HINDS. UNAVILABLE AT THIS TIME. PLAN TO CALL BACK IN 15 MINUTES
--- NOTE | 2020-12-20 20:23 | PC.NURSE ---
REPORT GIVEN TO MAYRA HINDS. NO QUESTIONS.
[2020-12-20] MEDS: Insulin Lispro 100 UNIT/ML 3 ML VIAL SUBCUT (21:54)
[2020-12-20 23:16] LABS: Glucose, Whole Blood 173 mg/dL (60-115)
[2020-12-21] VITALS (7 sets, daily range): BP systolic 117–146; BP diastolic 42–54; PULSE 41–73; RESP 16–18; TEMP 35.1–36.7; O2SAT 87–95
[2020-12-21] MEDS: Omeprazole 20 MG CAPSULE.DR PO (06:26)
[2020-12-21] MEDS: Heparin Sodium,Porcine 5,000 UNIT/ML VIAL 5000 UNIT SUBCUT ×2 (06:26→17:01)
[2020-12-21 06:54] LABS: MANUAL DIFF FLAG NO
[2020-12-21 07:13] LABS: Basophils Percent Auto 0.1 % (0-2); Eosinophils Absolute Auto 0.1 X10*3/uL (0.0-0.4); Eosinophils Percent Auto 0.5 % (0-4); Hematocrit 29.2 % (37-47); Hemoglobin 9.3 g/dl (12.0-16.0); Imm Gran Abs Auto 0.04 X10*3/uL (0.00-0.03); Imm Gran Pct Auto 0.4 % (0.0-0.4); Lymphocytes Absolute Auto 0.9 X10*3/uL (1.2-4.9); Lymphocytes Percent Auto 9.5 % (20-40); Mean Corpuscular HGB Conc 31.8 g/dl (31.0-35.0); Mean Corpuscular Hemoglobin 29.3 pg (27.0-33.0); Mean Corpuscular Volume 92.1 fL (80-98); Mean Platelet Volume 10.8 fL (9.4-12.3); Monocytes Absolute Auto 0.7 X10*3/uL (0.1-1.2); Monocytes Percent Auto 6.7 % (2-11); Neutrophils Absolute Auto 8.2 X10*3/uL (2.0-8.3); Neutrophils Percent Auto 82.8 % (45-73); Platelet Count 202 X10*3/uL (160-400); Red Blood Count 3.17 X10*6/uL (4.20-5.50); Red Cell Distribution Width 12.9 % (11.0-16.0); White Blood Count 9.9 X10*3/uL (4.8-10.8)
[2020-12-21 07:33] LABS: Glucose, Whole Blood 174 mg/dL (60-115)
[2020-12-21 08:02] LABS: Anion Gap 20 (12-20); Blood Urea Nitrogen 40 mg/dL (9-16); Calcium 9.2 mg/dL (8.4-10.2); Carbon Dioxide 20 mmol/L (22-29); Chloride 98 mmol/L (96-108); Creatinine Clr Calc Pharmacy 10.7; Estimated Glomerular Filt Rate 9; Glucose Random 201 mg/dL (60-115); Potassium 4.1 mmol/L (3.3-5.1); Sodium 134 mmol/L (135-145)
[2020-12-21] MEDS: Insulin Lispro 100 UNIT/ML 3 ML VIAL SUBCUT ×3 (08:44→17:01)
[2020-12-21] MEDS: 0.9 % Sodium Chloride Flush 3 ML SYRINGE IVFLUSH ×2 (08:47→15:18)
--- NOTE | 2020-12-21 08:56 | P.PNNP_ITS ---
Subjective Subjective Date of Service: 12/21/20 Interval history: Patient seen and examined Physical Exam Vital Signs: Vital Signs: Last Vital Signs Temp 96.9 F 12/21/20 04:00 Pulse 46 L 12/21/20 08:46 Resp 16 12/21/20 04:00 BP 117/45 L 12/21/20 04:00 Pulse Ox 91 L 12/21/20 04:00 Body Mass Index 35.7 Objective Data Labs CBC & Chem 7: 12/21/20 06:29 12/21/20 06:29 Labs: Laboratory Results - last 24 hr 12/20/20 12/20/20 12/20/20 12:41 12:41 12:41 WBC 11.9 H RBC 3.19 L Hgb 9.5 L Hct 29.1 L MCV 91.2 MCH 29.8 MCHC 32.6 RDW 13.0 Plt Count 236 MPV 10.8 Immature Gran % (Auto) 0.6 H Neut % (Auto) 85.5 H Lymph % (Auto) 7.9 L [place] % (Auto) 5.6 Eos % (Auto) 0.2 Baso % (Auto) 0.2 Lymph # (Auto) 0.9 L [place] # (Auto) 0.7 Eos # (Auto) 0.0 Baso # (Auto) 0.0 Abs Immat Gran (auto) 0.07 H Absolute Neuts (auto) 10.1 H Absolute Nucleated RBC 0.000 Nucleated RBC % (auto) 0.0 PT 14.1 H INR 1.2 H Sodium 132 L Potassium 5.0 Chloride 96 Carbon Dioxide 14 L Anion Gap 27 H BUN 82 H* Creatinine 8.35 H* Estim Creat Clear Calc 6.4 Estimated GFR 5 POC Glucose Random Glucose 266 H Lactic Acid Calcium 9.2 Magnesium 2.0 Total Bilirubin 0.4 Direct Bilirubin < 0.2 AST 14 D ALT < 6 Alkaline Phosphatase 198 H Troponin I High Sens Total Protein 6.2 L Albumin 3.1 L Urine Color Urine Appearance Urine pH Ur Specific [place] Urine Protein Urine Glucose (UA) Urine Ketones Urine Blood Urine Nitrite Ur Leukocyte Esterase Urine RBC Urine WBC Urine WBC Clumps Ur Squamous Epith Cells Urine Bacteria COVID-19 (JUANITA) COVID-19 Clin Com 12/20/20 12/20/20 12/20/20 12:41 12:41 12:45 WBC RBC Hgb Hct MCV MCH MCHC RDW Plt Count MPV Immature Gran % (Auto) Neut % (Auto) Lymph % (Auto) [place] % (Auto) Eos % (Auto) Baso % (Auto) Lymph # (Auto) [place] # (Auto) Eos # (Auto) Baso # (Auto) Abs Immat Gran (auto) Absolute Neuts (auto) Absolute Nucleated RBC Nucleated RBC % (auto) PT INR Sodium Potassium Chloride Carbon Dioxide Anion Gap BUN Creatinine Estim Creat Clear Calc Estimated GFR POC Glucose Random Glucose Lactic Acid 1.6 Calcium Magnesium Total Bilirubin Direct Bilirubin AST ALT Alkaline Phosphatase Troponin I High Sens 81.8 H Total Protein Albumin Urine Color Urine Appearance Urine pH Ur Specific [place] Urine Protein Urine Glucose (UA) Urine Ketones Urine Blood Urine Nitrite Ur Leukocyte Esterase Urine RBC Urine WBC Urine WBC Clumps Ur Squamous Epith Cells Urine Bacteria COVID-19 (JUANITA) Negative COVID-19 Clin Com See Note 12/20/20 12/20/20 12/20/20 14:21 15:41 15:42 WBC RBC Hgb Hct MCV MCH MCHC RDW Plt Count MPV Immature Gran % (Auto) Neut % (Auto) Lymph % (Auto) [place] % (Auto) Eos % (Auto) Baso % (Auto) Lymph # (Auto) [place] # (Auto) Eos # (Auto) Baso # (Auto) Abs Immat Gran (auto) Absolute Neuts (auto) Absolute Nucleated RBC Nucleated RBC % (auto) PT INR Sodium Potassium Chloride Carbon Dioxide Anion Gap BUN Creatinine Estim Creat Clear Calc Estimated GFR POC Glucose 219 H Random Glucose Lactic Acid Calcium Magnesium Total Bilirubin Direct Bilirubin AST ALT Alkaline Phosphatase Troponin I High Sens 63.7 H Total Protein Albumin Urine Color YELLOW Urine Appearance CLOUDY Urine pH 7.0 Ur Specific [place] 1.025 Urine Protein 2+ H Urine Glucose (UA) 250 H Urine Ketones 5 Urine Blood 2+ H Urine Nitrite NEG Ur Leukocyte Esterase TRACE H Urine RBC 15-29 H Urine WBC TNTC H Urine WBC Clumps NOTED Ur Squamous Epith Cells 2+ Urine Bacteria 4+ COVID-19 (JUANITA) COVID-19 Clin Com 12/20/20 12/21/20 12/21/20 21:43 06:29 06:29 WBC 9.9 RBC 3.17 L Hgb 9.3 L Hct 29.2 L MCV 92.1 MCH 29.3 MCHC 31.8 RDW 12.9 Plt Count 202 MPV 10.8 Immature Gran % (Auto) 0.4 Neut % (Auto) 82.8 H Lymph % (Auto) 9.5 L [place] % (Auto) 6.7 Eos % (Auto) 0.5 Baso % (Auto) 0.1 Lymph # (Auto) 0.9 L [place] # (Auto) 0.7 Eos # (Auto) 0.1 Baso # (Auto) 0.0 Abs Immat Gran (auto) 0.04 H Absolute Neuts (auto) 8.2 Absolute Nucleated RBC 0.000 Nucleated RBC % (auto) 0.0 PT INR Sodium 134 L Potassium 4.1 Chloride 98 Carbon Dioxide 20 L Anion Gap 20 BUN 40 H D Creatinine 4.88 H* Estim Creat Clear Calc 10.7 Estimated GFR 9 POC Glucose 173 H Random Glucose 201 H Lactic Acid Calcium 9.2 Magnesium Total Bilirubin Direct Bilirubin AST ALT Alkaline Phosphatase Troponin I High Sens Total Protein Albumin Urine Color Urine Appearance Urine pH Ur Specific [place] Urine Protein Urine Glucose (UA) Urine Ketones Urine Blood Urine Nitrite Ur Leukocyte Esterase Urine RBC Urine WBC Urine WBC Clumps Ur Squamous Epith Cells Urine Bacteria COVID-19 (JUANITA) COVID-[employer] 12/21/20 07:24 WBC RBC Hgb Hct MCV MCH MCHC RDW Plt Count MPV Immature Gran % (Auto) Neut % (Auto) Lymph % (Auto) [place] % (Auto) Eos % (Auto) Baso % (Auto) Lymph # (Auto) [place] # (Auto) Eos # (Auto) Baso # (Auto) Abs Immat Gran (auto) Absolute Neuts (auto) Absolute Nucleated RBC Nucleated RBC % (auto) PT INR Sodium Potassium Chloride Carbon Dioxide Anion Gap BUN Creatinine Estim Creat Clear Calc Estimated GFR POC Glucose 174 H Random Glucose Lactic Acid Calcium Magnesium Total Bilirubin Direct Bilirubin AST ALT Alkaline Phosphatase Troponin I High Sens Total Protein Albumin Urine Color Urine Appearance Urine pH Ur Specific [place] Urine Protein Urine Glucose (UA) Urine Ketones Urine Blood Urine Nitrite Ur Leukocyte Esterase Urine RBC Urine WBC Urine WBC Clumps Ur Squamous Epith Cells Urine Bacteria COVID-19 (JUANITA) COVID-19 [employer] Assessment & Plan Assessment and plan (1) ESRD (end stage renal disease) on dialysis: Status: Acute (2) Anemia: Status: Acute Assessment and Plan: HD per schedule optimize volume status renal diet phosphate binders ALLEN per protocol Thank you Time Spent With Patient Time: Total time spent is greater than 50% in coordination of care (as docume nted) at patient's floor/unit and/or counseling patient:
[2020-12-21 12:00] LABS: Glucose, Whole Blood 254 mg/dL (60-115)
--- NOTE | 2020-12-21 12:13 | HO.PM.IMPN ---
Subjective Subjective Date of Service: 12/21/20 Review of Systems the patient was seen and evaluated this morning Laying in bed, feels comfortable overall complaining of back pain mainly to Denies any fever, chills or shortness of breath No reported other overnight events. Systemic review: No fever, chills or weakness No chest pain, palpitation No shortness of breath or coughing No abdominal pain, nausea or vomiting No urinary symptoms Back, Left hip and leg pain No any rash or wounds Physical Exam Vital Signs: Vital Signs: Last Vital Signs Temp 96.9 F 12/21/20 04:00 Pulse 46 L 12/21/20 08:46 Resp 16 12/21/20 04:00 BP 117/45 L 12/21/20 04:00 Pulse Ox 95 12/21/20 08:00 Body Mass Index 35.7 Const: Other: Constitutional : Alert, oriented, not in distress, legally blind Neck : Normal inspection, Supple Cardiovascular : RRR, S1 S2, trace bilateral lower extremity edema Respiratory : Repair bilateral air entry decreased at the bases, basal fine crackles, wheezes or rhonchi Gastrointestinal: soft, lax, Normal bowel sounds, Non tender Skin : Warm/Dry, No rash Muscular, left leg thigh pain, no erythema Neurological : Alert & oriented x3, No focal deficit Objective Data Current Medications Generic Name Dose Route Start Last Admin Trade Name Aashishq PRN Reason Stop Dose Admin Acetaminophen 650 mg 12/20/20 15:52 Acetaminophen 325 Mg Tablet PO QID PRN pain Amlodipine Besylate 10 mg 12/21/20 09:00 12/21/20 08:47 Amlodipine Besylate 10 Mg Tablet PO Not Given DAILY [facility] Protocol Bisacodyl 10 mg 12/20/20 15:52 Bisacodyl 10 Mg Supp.Rect [place] DAILY PRN Constipation Glucose 15 gm 12/21/20 09:00 Glucose Gel 15 Gm Gel..Gram. PO DAILY PRN LOW BLOOD SUGAR Heparin Sodium (Porcine) 5,000 unit 12/20/20 18:00 12/21/20 06:26 Heparin Sodium,Porcine 5,000 Unit/Ml Vial SUBCUT 5,000 unit Q12H [facility] Administration Ceftriaxone Sodium 1 gm/ 50 mls @ 100 mls/hr 12/21/20 14:00 Sodium Chloride IV Q24H [facility] Insulin Human Lispro 0 unit 12/20/20 16:30 12/21/20 08:44 Insulin Lispro 100 Unit/Ml 3 Ml Vial SUBCUT 2 unit QIDACHS [facility] Administration Protocol Omeprazole 20 mg 12/21/20 06:30 12/21/20 06:26 Omeprazole 20 Mg Capsule. PO 20 mg DAILY@0630 [facility] Administration Ondansetron HCl 4 mg 12/20/20 15:52 Ondansetron Hcl 4 Mg/2 Ml Vial IVPUSH Q8H PRN Nausea and Vomiting Pharmacy Consult 1 each 12/20/20 14:45 Consult Rx Perform Med Rec MISCELLANE ONCE PRN Consult order Sodium Biphosphate/Sodium Phosphate 118 ml 12/20/20 15:52 Sodium Phosphate,[place]-Dibasic 133 Ml Enema [place] DAILY PRN Constipation Sodium Chloride 3 ml 12/20/20 16:00 12/21/20 08:47 0.9 % Sodium Chloride Flush 3 Ml Syringe IVFLUSH 3 ml QSHIFT [facility] Administration Vitamin B Complex/Folic Acid 1 cap 12/21/20 09:00 12/21/20 08:44 B Complex W-C No.20/Folic Acid Capsule PO 1 cap DAILY [facility] Administration Labs CBC & Chem 7: 12/21/20 06:29 12/21/20 06:29 Microbiology Microbiology Results: Microbiology 12/20/20 00:00 Urine clean catch - Clean Catch Midstream Urine Culture - Preliminary Gram negative arleth Assessment and Plan (1) ESRD (end stage renal disease) on dialysis: Status: Acute (2) Fluid overload: Status: Acute (3) UTI (urinary tract infection): Status: Acute (4) Hip pain, left: Status: Acute Assessment and Plan: A 70 years old lady with PMH of diabetes, ESRD, legally blind, GERD, obesity among others who presented to the hospital complaining of left hip pain for the last 2 days. Missed dialysis 2 days ago and noticed to have fluid overload. Acute hypoxia Secondary to Fluid overload Improved after dialysis ESRD needs dialysis Session dialysis yesterday with good response Nephrology contacted, to dialysis per schedule Monitor fluid status UTI GNR in cultures Continue ceftriaxone Left leg pain From trauma XR, CT scan negative for any acute fracture Pain management DVT PPX Heparin
--- NOTE | 2020-12-21 13:29 | MHC.CM.PN ---
PT REPORTS SHE RESIDES AT [facility]. SHE REPORTS SHE IS LEGALLY BLIND AND REQUIRES ASSISTANCE WITH AL CARE. SHE STATES SHE WAS USING A WHEEL CHAIR HOWEVER RECENTLY HAS BEEN UNABLE TO GET OUT OF BED. SHE IS HOPEFUL THAT SHE WILL BE ABLE TO GET STRONG ENOUGH TO TRANSFER WITH A WALKER AGAIN AND USE HE WHEEL CHAIR. PT CONFIRMS SHE SEES THE DOCTOR AT THE [facility] FOR PRIMARY CARE. PT DOES NOT HAVE A HCP ON FILE HERE, A COPY WAS REQUESTED FROM THE SN[facility]. IMM DELIVERED VERBALLY, PT INDICATED UNDERSTANDING CURRENT DC PLAN IS FOR PT TO RETURN TO [facility] FOR LTC VIA BLS
[2020-12-21] MEDS: cefTRIAXone sodium 1 GM in 0.9 % Sodium Chloride 50 ML IV (15:16)
[2020-12-21 17:01] LABS: Glucose, Whole Blood 163 mg/dL (60-115)
[2020-12-21 20:28] LABS: Glucose, Whole Blood 157 mg/dL (60-115)
[2020-12-22] VITALS: BP 143/53; PULSE 73; RESP 16; TEMP 36.1; O2SAT 95
[2020-12-22] MEDS: 0.9 % Sodium Chloride Flush 3 ML SYRINGE IVFLUSH ×4 (00:08→21:19)
[2020-12-22] MEDS: Omeprazole 20 MG CAPSULE.DR PO (06:24)
[2020-12-22] MEDS: Heparin Sodium,Porcine 5,000 UNIT/ML VIAL 5000 UNIT SUBCUT ×2 (06:24→17:12)
[2020-12-22 08:00] VITALS: BP 144/61; PULSE 44; RESP 18; TEMP 36.4; O2SAT 95
[2020-12-22 08:10] LABS: Glucose, Whole Blood 111 mg/dL (60-115)
[2020-12-22 08:58] VITALS: BP 144/61; PULSE 44
[2020-12-22] MEDS: amLODIPine Besylate 10 MG TABLET PO (08:58)
--- NOTE | 2020-12-22 10:34 | P.PNIM_ITS ---
Subjective Subjective Date of Service: 12/22/20 Review of Systems the patient was seen and evaluated this morning Laying in bed, feels comfortable overall complaining of back pain you Denies any fever, chills or shortness of breath No reported other overnight events. Systemic review: No fever, chills or weakness No chest pain, palpitation No shortness of breath or coughing No abdominal pain, nausea or vomiting No urinary symptoms Back, Left hip and leg pain No any rash or wounds Physical Exam Vital Signs: Vital Signs: Last Vital Signs Temp 97.5 F 12/22/20 08:00 Pulse 44 L 12/22/20 08:58 Resp 18 12/22/20 08:00 BP 144/61 H 12/22/20 08:58 Pulse Ox 95 12/22/20 08:00 Body Mass Index 35.7 Const: Other: Constitutional : Alert, oriented, not in distress, legally blind Neck : Normal inspection, Supple Cardiovascular : RRR, S1 S2, trace bilateral lower extremity edema Respiratory : Repair bilateral air entry decreased at the bases, basal fine crackles, wheezes or rhonchi Gastrointestinal: soft, lax, Normal bowel sounds, Non tender Skin : Warm/Dry, No rash Muscular, left leg thigh pain, no erythema Neurological : Alert & oriented x3, No focal deficit Objective Data Current Medications Generic Name Dose Route Start Last Admin Trade Name Aashishq PRN Reason Stop Dose Admin Acetaminophen 650 mg 12/20/20 15:52 Acetaminophen 325 Mg Tablet PO QID PRN pain Amlodipine Besylate 10 mg 12/21/20 09:00 12/22/20 08:58 Amlodipine Besylate 10 Mg Tablet PO 10 mg DAILY USAMA Administration Protocol Bisacodyl 10 mg 12/20/20 15:52 Bisacodyl 10 Mg Supp.Rect UT DAILY PRN Constipation Glucose 15 gm 12/21/20 09:00 Glucose Gel 15 Gm Gel..Gram. PO DAILY PRN LOW BLOOD SUGAR Heparin Sodium (Porcine) 5,000 unit 12/20/20 18:00 12/22/20 06:24 Heparin Sodium,Porcine 5,000 Unit/Ml Vial SUBCUT 5,000 unit Q12H USAMA Administration Ceftriaxone Sodium 1 gm/ 50 mls @ 100 mls/hr 12/21/20 14:00 12/21/20 15:58 Sodium Chloride IV Infused Q24H USAMA Infusion Insulin Human Lispro 0 unit 12/20/20 16:30 12/22/20 08:16 Insulin Lispro 100 Unit/Ml 3 Ml Vial SUBCUT Not Given QIDACHS [facility] Protocol Omeprazole 20 mg 12/21/20 06:30 12/22/20 06:24 Omeprazole 20 Mg Capsule. PO 20 mg DAILY@0630 USAMA Administration Ondansetron HCl 4 mg 12/20/20 15:52 Ondansetron Hcl 4 Mg/2 Ml Vial IVPUSH Q8H PRN Nausea and Vomiting Pharmacy Consult 1 each 12/20/20 14:45 Consult Rx Perform Med Rec MISCELLANE ONCE PRN Consult order Sodium Biphosphate/Sodium Phosphate 118 ml 12/20/20 15:52 Sodium Phosphate,[place]-Dibasic 133 Ml Enema [place] DAILY PRN Constipation Sodium Chloride 3 ml 12/20/20 16:00 12/22/20 08:57 0.9 % Sodium Chloride Flush 3 Ml Syringe IVFLUSH 3 ml QSHIFT USAMA Administration Vitamin B Complex/Folic Acid 1 cap 12/21/20 09:00 12/22/20 08:57 B Complex W-C No.20/Folic Acid Capsule PO 1 cap DAILY USAMA Administration Labs CBC & Chem 7: 12/21/20 06:29 12/21/20 06:29 Microbiology Microbiology Results: Microbiology 12/20/20 00:00 Urine clean catch - Clean Catch Midstream Urine Culture - Final Klebsiella pneumoniae 12/20/20 12:45 Blood - Venous Blood Culture - Preliminary No growth after 24 hours. 12/20/20 12:41 Blood - Venous Blood Culture - Preliminary No growth after 24 hours. Assessment and Plan (1) ESRD (end stage renal disease) on dialysis: Status: Acute (2) Fluid overload: Status: Acute (3) UTI (urinary tract infection): Status: Acute (4) Hip pain, left: Status: Acute Assessment and Plan: A 70 years old lady with PMH of diabetes, ESRD, legally blind, GERD, obesity among others who presented to the hospital complaining of left hip pain for the last 2 days. Missed dialysis 2 days ago and noticed to have fluid overload. Acute hypoxia Secondary to Fluid overload O2 sats dropped to 87 this morning on room air Consider 2nd session of dialysis today ESRD needs dialysis Session dialysis Tuesday with good response Nephrology contacted, to dialysis per schedule Will check with Nephrology if dialysis is doable today before discharge the patient. UTI GNR in cultures Continue ceftriaxone low back pain Left leg pain From trauma XR, CT scan negative for any acute fracture Pain management with lidocaine patch, Tylenol ATC DVT PPX Heparin
[2020-12-22 11:10] LABS: Glucose, Whole Blood 218 mg/dL (60-115)
[2020-12-22 11:18] VITALS: BP 127/53; PULSE 80; RESP 18; TEMP 36.1; O2SAT 97
[2020-12-22] MEDS: Insulin Lispro 100 UNIT/ML 3 ML VIAL SUBCUT ×3 (11:20→21:19)
[2020-12-22] MEDS: Acetaminophen 325 MG TABLET 650 MG PO ×3 (11:20→23:35)
--- NOTE | 2020-12-22 12:53 | MHC.CM.PN ---
NINO TURPIN UPDATED IN [facility]. POSSIBLE RETURN TO FACILITY TODAY.
--- NOTE | 2020-12-22 13:57 | CONS_ITS ---
DATE OF SERVICE: 12/21/2020 HISTORY OF PRESENT ILLNESS: This is a 70-year-old patient with history of end-stage renal disease, presented to the hospital with back pain after she missed dialysis. The patient had her dialysis yesterday after she was noted to be hypoxic with oxygen saturation down to 88% denies any chest pain or shortness of breath. She denies any nausea, vomiting, or diarrhea. PAST MEDICAL HISTORY: Remarkable for end-stage renal disease, diabetes mellitus, hypertension, blindness, GERD, dyslipidemia, obesity. PAST SURGICAL HISTORY: Notable for vascular access placement. CURRENT MEDICATIONS: As an inpatient and outpatient reviewed. ALLERGIES: SHE HAS MULTIPLE ALLERGY TO SULFA DRUGS, ATORVASTATIN, BACITRACIN, HYDROGEN PEROXIDE. SOCIAL HISTORY: Does not smoke. FAMILY HISTORY: Negative for kidney disease. REVIEW OF SYSTEMS: 10-point review of systems is negative except pertinent in the history of present illness. PHYSICAL EXAMINATION: VITAL SIGNS: Blood pressure is 163/50, heart rate 56, respiratory rate 18, temperature 98.8. CONSTITUTIONAL: Looks her stated age. No acute distress. NEUROLOGIC: Alert, awake. HEAD: Atraumatic, normocephalic. NECK: Supple. LUNGS: Decreased breath sounds. CARDIOVASCULAR: S1 and S2. No rub. ABDOMEN: Soft, obese, nontender. EXTREMITIES: peripheral edema. LABORATORY DATA: White count 9.9, hemoglobin 9.3, platelet count 202. Sodium 134, potassium 4.1, chloride 98, CO2 of 20, BUN 40, creatinine 4.88. IMPRESSION: 1. End-stage renal disease. 2. Anemia. PLAN: The plan will be to continue with hemodialysis as per schedule. We will optimize her volume status on dialysis treatment. We will have her on a renal diet, phosphate binder. Resume ALLEN per protocol. Thank you for allowing me to participate in the care of this patient. MD SANDEE Almodovar/WILL / [phone]
[2020-12-22] MEDS: cefTRIAXone sodium 1 GM in 0.9 % Sodium Chloride 50 ML IV (15:08)
[2020-12-22 15:42] VITALS: BP 136/56; PULSE 79; RESP 19; TEMP 36.3; O2SAT 97
[2020-12-22 16:18] LABS: Glucose, Whole Blood 173 mg/dL (60-115)
--- NOTE | 2020-12-22 17:23 | PM.PNNEP ---
Subjective Subjective Date of Service: 12/22/20 Interval history: Seen AM. Events noted. All recent data reviewed Physical Exam Vital Signs: Vital Signs: Last Vital Signs Temp 97.4 F 12/22/20 15:42 Pulse 79 12/22/20 15:42 Resp 19 12/22/20 15:42 BP 136/56 L 12/22/20 15:42 Pulse Ox 97 12/22/20 15:42 Body Mass Index 35.7 Const: General: No acute distress Orientation/consciousness: patient oriented x3 Neck: Neck: Yes supple Resp: Auscultation: diminished lung sounds Cardio: Jugular venous distension: no JVD GI: Palpation (GI): Soft to palpation Neuro: General: patient oriented x3 and moves all extremities Objective Data Labs CBC & Chem 7: 12/21/20 06:29 12/21/20 06:29 Labs: Laboratory Results - last 24 hr 12/21/20 12/22/20 12/22/20 20:17 08:05 10:51 POC Glucose 157 H 111 218 H 12/22/20 16:13 POC Glucose 173 H Microbiology Microbiology Results: Microbiology 12/20/20 12:45 Blood - Venous Blood Culture - Preliminary No growth after 48 hours. 12/20/20 12:41 Blood - Venous Blood Culture - Preliminary No growth after 48 hours. 12/20/20 00:00 Urine clean catch - Clean Catch Midstream Urine Culture - Final Klebsiella pneumoniae Assessment & Plan Assessment and plan (1) ESRD (end stage renal disease) on dialysis: Problem details: Usually gets HD on TTS( Due tomorrow) Renal Diet; Phos binders with meals Shall optimize volume status on HD Shall initiate Procrit if Hb is low after HD tomorrow Concur with rest of current management Status: Acute Time Spent With Patient Time: Total time spent is greater than 50% in coordination of care (as documented) at patient's floor/unit and/or counseling patient:
[2020-12-22 20:57] LABS: Glucose, Whole Blood 176 mg/dL (60-115)
[2020-12-23] VITALS: BP 148/64; PULSE 65; RESP 18; TEMP 35.8; O2SAT 98
[2020-12-23] MEDS: Heparin Sodium,Porcine 5,000 UNIT/ML VIAL 5000 UNIT SUBCUT (05:10)
[2020-12-23] MEDS: Omeprazole 20 MG CAPSULE.DR PO (05:10)
[2020-12-23 07:35] LABS: Glucose, Whole Blood 102 mg/dL (60-115)
[2020-12-23 08:00] VITALS: BP 113/50; PULSE 79; RESP 18; TEMP 36.1; O2SAT 95
[2020-12-23] MEDS: Lidocaine 4 % Patch ADH..PATCH 1 PATCH TRANSDERMA (09:16)
[2020-12-23] MEDS: Acetaminophen 325 MG TABLET 650 MG PO ×2 (09:16→16:18)
[2020-12-23 09:19] VITALS: BP 113/50; PULSE 79
[2020-12-23] MEDS: 0.9 % Sodium Chloride Flush 3 ML SYRINGE IVFLUSH ×2 (09:19→16:20)
[2020-12-23] MEDS: amLODIPine Besylate 10 MG TABLET PO (09:19)
--- NOTE | 2020-12-23 09:33 | PM.PNNEP ---
Subjective Subjective Date of Service: 12/23/20 Interval history: Seen AM. Events noted. All recent data reviewed. Due HD today. Having breakfast this AM Physical Exam Vital Signs: Vital Signs: Last Vital Signs Temp 96.9 F 12/23/20 08:00 Pulse 79 12/23/20 09:19 Resp 18 12/23/20 08:00 BP 113/50 L 12/23/20 09:19 Pulse Ox 95 12/23/20 08:00 Body Mass Index 35.7 Const: General: No no acute distress Orientation/consciousness: patient oriented x3 Neck: Neck: Yes supple Resp: Auscultation: diminished lung sounds Cardio: Jugular venous distension: no JVD GI: Palpation (GI): Soft to palpation Neuro: General: patient oriented x3 Objective Data Labs CBC & Chem 7: 12/21/20 06:29 12/21/20 06:29 Labs: Laboratory Results - last 24 hr 12/22/20 12/22/20 12/22/20 10:51 16:13 20:52 POC Glucose 218 H 173 H 176 H 12/23/20 07:31 POC Glucose 102 Microbiology Microbiology Results: Microbiology 12/20/20 12:45 Blood - Venous Blood Culture - Preliminary No growth after 48 hours. 12/20/20 12:41 Blood - Venous Blood Culture - Preliminary No growth after 48 hours. 12/20/20 00:00 Urine clean catch - Clean Catch Midstream Urine Culture - Final Klebsiella pneumoniae Assessment & Plan Assessment and plan (1) ESRD (end stage renal disease) on dialysis: Problem details: Usually gets HD on TTS( Due today) Renal Diet; Phos binders with meals Shall optimize volume status on HD Concur with rest of current management ? D/C after HD today Status: Acute Time Spent With Patient Time: Total time spent is greater than 50% in coordination of care (as documented) at patient's floor/unit and/or counseling patient:
--- NOTE | 2020-12-23 13:49 | P.DS_ITS ---
DS: Providers Provider Date of Service: 12/23/20 Date of admission: 12/20/20 15:47 Primary care physician: Erwin Saucedo MD Consults: 12/20/20 15:52 Consult to Nephrology Routine Consulting Provider: Alina Eckert Reason for consultation: Need for dialysis, missed dialysis. DS: Diagnosis Discharge Diagnosis (1) ESRD (end stage renal disease) on dialysis: Status: Acute (2) Fluid overload: Status: Acute (3) Acute on chronic anemia: Status: Acute (4) Hip pain, left: Status: Acute (5) UTI (urinary tract infection): Status: Acute DS: Medications Discharge Medications Home Medications: Home Medications Medication Instructions Recorded Confirmed Fleet Enema 118 ml [place] DAILY PRN 12/20/20 12/20/20 Glucagon (HCl) Emergency Kit 1 mg SUBCUT Q20M PRN 12/20/20 12/20/20 Triphrocaps 1 cap PO DAILY 12/20/20 12/20/20 acetaminophen 650 mg PO QID PRN MDD 3000mg 12/20/20 12/20/20 amlodipine 10 mg PO DAILY 12/20/20 12/20/20 bisacodyl [Dulcolax (bisacodyl)] 10 mg [place] DAILY PRN 12/20/20 12/20/20 dextrose [Glucose Gel] 1 ea PO NEEDED 12/20/20 12/20/20 diclofenac sodium 2 g TOPICAL QID 12/20/20 12/20/20 insulin glargine See Protocol SUBCUT DAILY 12/20/20 12/20/20 insulin lispro 20 unit SUBCUT BEDTIME 12/20/20 12/20/20 insulin lispro [Humalog U-100 1 sliding scale dose SUBCUT 12/20/20 12/20/20 Insulin] USEASDIRECTD lidocaine-prilocaine See Rx Instructions .ROUTE .COMPLEX 12/20/20 12/20/20 omeprazole 20 mg PO DAILY 12/20/20 12/20/20 ondansetron HCl [Zofran] 4 mg PO Q8H PRN 12/20/20 12/20/20 rosuvastatin [Crestor] 5 mg PO DAILY 12/20/20 12/20/20 Previous Rx's Medication Instructions Recorded cefuroxime axetil 500 mg PO BID #6 tab 12/23/20 DS: Summary Hospital Course Hospital Course: Admission note HPI A 70 years old lady with PMH of diabetes, ESRD, legally blind, GERD, obesity among others who presented to the hospital complaining of left hip pain for the last 2 days. The patient reports she fell on the chair while she was trying to sit on wheelchair couple days ago and she started to have pain since then. She was not able to go to dialysis on because of the. Pain did not improve with Tylenol. Noted to low oxygen level by EMS of 88%. In the emergency she was noted to have urine infection and started on antibi otics. Nephrology was contacted for urgent dialysis for fluid overload as shown on chest x-ray. A CT scan of the head negative for any acute injury or fracture. Hospital course The patient is ESRD needs dialysis was Admitted for fluid overload and Acute hypoxia after missing dialysis. O2 sats dropped to 87 this morning on room air. At total of 2 sessions of dialysis in the hospital stay with fair response. Nephrology follow the patient during the hospital stay. Will arrange for outpatient dialysis. UTI Urine culture growing Klebsiella. Treated with IV ceftriaxone with good response. To continue Ceftin at discharge. low back pain Left leg pain From trauma while she was trying to sit in her wheelchair. XR, CT scan negative for any acute fracture Pain management with lidocaine patch, Tylenol ATC Time spent discussing smoking cessation with patient: more than 10 minutes Time Spent with Patient Time attestation: Total time spent providing and/or coordinating discharge services: Discharge coordination time: Greater than 30 minutes Physical Exam Vital Signs: Vital Signs: Last Vital Signs Temp 96.9 F 12/23/20 08:00 Pulse 79 12/23/20 09:19 Resp 18 12/23/20 08:00 BP 113/50 L 12/23/20 09:19 Pulse Ox 95 12/23/20 08:00 Body Mass Index 35.7 Const: Other: Constitutional : Alert, oriented, not in distress, legally blind Neck : Normal inspection, Supple Cardiovascular : RRR, S1 S2, trace bilateral lower extremity edema Respiratory : Repair bilateral air entry decreased at the bases, basal fine crackles, wheezes or rhonchi Gastrointestinal: soft, lax, Normal bowel sounds, Non tender Skin : Warm/Dry, No rash Muscular, left leg thigh pain, no erythema Neurological : Alert & oriented x3, No focal deficit DS: Data Data Completed and Pending Labs on day of discharge: Laboratory Results - last 24 hr 12/22/20 12/22/20 12/23/20 16:13 20:52 07:31 POC Glucose 173 H 176 H 102 Preliminary micro results at discharge 12/20/20 12:45 Blood Culture - Preliminary Blood - Venous No growth after 48 hours. 12/20/20 12:41 Blood Culture - Preliminary Blood - Venous No growth after 48 hours. Discharge Plan Discharge Patient Disposition: er [facility] Referrals: David Motta [Outside] Erwin Saucedo MD [Primary Care Provider] - Discharge Medications: New cefuroxime axetil 500 mg tablet 500 mg PO BID Qty: 6 RF: 0 Continued acetaminophen 325 mg Tablet 650 mg PO QID MDD 3000mg PRN (Reason: pain) RF: 0 amlodipine 10 mg Tablet 10 mg PO DAILY RF: 0 rosuvastatin [Crestor] 5 mg Tablet 5 mg PO DAILY RF: 0 diclofenac sodium 1 % Gel 2 g TOPICAL QID RF: 0 ondansetron HCl [Zofran] 4 mg Tablet 4 mg PO Q8H PRN (Reason: Nausea) RF: 0 dextrose [Glucose Gel] 40 % Gel 1 ea PO NEEDED RF: 0 lidocaine-prilocaine 2.5-2.5 % Cream See Rx Instructions .ROUTE .COMPLEX RF: 0 bisacodyl [Dulcolax (bisacodyl)] 10 mg Suppository 10 mg [place] DAILY PRN (Reason: Constipation) RF: 0 Fleet Enema 19-7 gram/118 mL Enema 118 ml [place] DAILY PRN (Reason: Constipation) RF: 0 omeprazole 20 mg Capsule,Delayed Release(Dr/Ec) 20 mg PO DAILY RF: 0 insulin lispro [Humalog U-100 Insulin] 100 unit/mL Solution 1 sliding scale dose SUBCUT USEASDIRECTD RF: 0 insulin lispro 100 unit/mL Solution 20 unit subcut BEDTIME RF: 0 Triphrocaps 1 mg Capsule 1 cap PO DAILY RF: 0 insulin glargine 100 unit/mL Cartridge See Protocol unit SUBCUT DAILY RF: 0 Glucagon (HCl) Emergency Kit 1 mg Recon Soln 1 mg SUBCUT Q20M PRN (Reason: Hypoglycemia) RF: 0 Discharge Orders: Discharge Order (Routine); Ordered 12/23/20 Ordered By: Shira Prasad Diet: advance to usual diet Activity on Discharge: As tolerated Stand Alone Forms: Patient Portal Discharge page Care Plan Goals: Read below Health Concerns: Read below Plan of Treatment: you were admitted to the hospital for treatment of fluid overload with Dialysis. Received dialysis session as reviewed by Nephrology twice during the hospital stay with good response. Noticed to have urine infection treated with IV antibiotics with good response. To continue Ceftin twice daily as prescribed.
[2020-12-23 16:00] VITALS: BP 125/57; PULSE 60; RESP 19; TEMP 36.4; O2SAT 95
[2020-12-23] MEDS: cefTRIAXone sodium 1 GM in 0.9 % Sodium Chloride 50 ML IV (16:17)
[2020-12-23 16:53] LABS: Glucose, Whole Blood 131 mg/dL (60-115)
== END 2020-12-23 17:50 | disposition skilled nursing facility (03) | DRG 689 ==
LOC: HO.ED 12:05 → HO.EDOVER 16:22 → HO.S3 19:40
PROVIDERS: Nurse Practitioner Family; Admitting Provider Student in an Organized Health Care Education/Training Program; Emergency Provider Emergency Medicine; PCP Family Medicine; Visit Provider Student in an Organized Health Care Education/Training Program
DX: N39.0 Urinary tract infection, site not specified (principal); N18.6 End stage renal disease; I12.0 Hypertensive chronic kidney disease with stage 5 chronic kidney disease or end stage renal disease; N17.9 Acute kidney failure, unspecified; E87.70 Fluid overload, unspecified; E11.22 Type 2 diabetes mellitus with diabetic chronic kidney disease; M25.552 Pain in left hip; Z99.2 Dependence on renal dialysis; D63.1 Anemia in chronic kidney disease; K21.9 Gastro-esophageal reflux disease without esophagitis; H54.8 Legal blindness, as defined in USA; Z20.822 Contact with and (suspected) exposure to COVID-19; Z87.891 Personal history of nicotine dependence; Z88.2 Allergy status to sulfonamides; Z79.4 Long term (current) use of insulin; Z79.899 Other long term (current) drug therapy
CPT/HCPCS: 36415; 71046; 73700; 80048; 80076; 81001; 81003; 82947; 83605; 83735; 84484; 85025; 85610; 87040; 87086; 87088; 87186; 87635; 90999; 93005; 96365; 97162; 99285; J0696; J2270

== ENCOUNTER 2021-02-02 10:21 | Outpatient (REF) | payer MEDICARE, MEDICAID, SELFPAY ==
[2021-02-02 07:55] LABS: Estimated Average Glucose 131 mg/dL; Hemoglobin A1c % 6.2 %
[2021-02-02 08:20] LABS: Cholesterol 133 mg/dL; HDL Cholesterol 40 mg/dL; LDL Cholesterol Calculated 74 mg/dl; Triglycerides 99 mg/dL
== END 2021-02-02 10:22 | disposition home or self-care (01) ==
LOC: HO.MMNH2L 10:21
PROVIDERS: Visit Provider Family Medicine
DX: E11.9 Type 2 diabetes mellitus without complications (principal); E78.9 Disorder of lipoprotein metabolism, unspecified
CPT/HCPCS: 36415; 80061; 83036

== ENCOUNTER 2021-03-14 06:50 | Outpatient (REF) | payer MEDICARE, MEDICAID, SELFPAY ==
[2021-03-14 06:53] LABS: MANUAL DIFF FLAG NO
[2021-03-14 07:13] LABS: Basophils Percent Auto 0.1 % (0-2); Eosinophils Absolute Auto 0.2 X10*3/uL (0.0-0.4); Eosinophils Percent Auto 2.4 % (0-4); Hematocrit 33.1 % (37-47); Hemoglobin 10.6 g/dl (12.0-16.0); Imm Gran Abs Auto 0.04 X10*3/uL (0.00-0.03); Imm Gran Pct Auto 0.5 % (0.0-0.4); Lymphocytes Absolute Auto 1.1 X10*3/uL (1.2-4.9); Mean Corpuscular Hemoglobin 28.9 pg (27.0-33.0); Mean Corpuscular Volume 90.2 fL (80-98); Mean Platelet Volume 9.9 fL (9.4-12.3); Monocytes Absolute Auto 0.5 X10*3/uL (0.1-1.2); Monocytes Percent Auto 6.9 % (2-11); Neutrophils Absolute Auto 5.6 X10*3/uL (2.0-8.3); Neutrophils Percent Auto 75.1 % (45-73); Platelet Count 237 X10*3/uL (160-400); Red Blood Count 3.67 X10*6/uL (4.20-5.50); Red Cell Distribution Width 13.3 % (11.0-16.0); White Blood Count 7.5 X10*3/uL (4.8-10.8)
[2021-03-14 08:19] LABS: Anion Gap 20 (12-20); Blood Urea Nitrogen 77 mg/dL (9-16); Calcium 9.7 mg/dL (8.4-10.2); Carbon Dioxide 18 mmol/L (22-29); Chloride 102 mmol/L (96-108); Estimated Glomerular Filt Rate 6; Glucose Random 132 mg/dL (60-115); Potassium 4.4 mmol/L (3.3-5.1); Sodium 136 mmol/L (135-145)
== END 2021-03-14 06:51 | disposition home or self-care (01) ==
LOC: HO.MMNH2L 06:50
PROVIDERS: Visit Provider Family Medicine
DX: I10 Essential (primary) hypertension (principal)
CPT/HCPCS: 36415; 80048; 85025

== ENCOUNTER 2021-03-20 09:39 | Outpatient (REF) | payer MEDICARE, MEDICAID, SELFPAY ==
[2021-03-20 10:11] LABS: Anion Gap 15 (12-20); Blood Urea Nitrogen 36 mg/dL (9-16); Calcium 9.4 mg/dL (8.4-10.2); Carbon Dioxide 31 mmol/L (22-29); Chloride 94 mmol/L (96-108); Estimated Glomerular Filt Rate 10; Glucose Random 144 mg/dL (60-115); Potassium 4.2 mmol/L (3.3-5.1); Sodium 136 mmol/L (135-145)
== END 2021-03-20 09:40 | disposition home or self-care (01) ==
LOC: HO.MMNH2L 09:39
PROVIDERS: Visit Provider Family Medicine
DX: R00.1 Bradycardia, unspecified (principal)
CPT/HCPCS: 36415; 80048

== ENCOUNTER 2021-05-04 00:11 | Outpatient (REF) | payer MEDICAID, SELFPAY | END 2021-05-04 00:12 | disposition home or self-care (01) | LOC: HO.MMNH2L 00:11 | PROVIDERS: Visit Provider Family Medicine | DX: Z13.89 Encounter for screening for other disorder (principal) ==

== ENCOUNTER 2021-05-08 07:11 | Outpatient (REF) | payer SELFPAY ==
[2021-05-08 07:37] LABS: MANUAL DIFF FLAG NO
[2021-05-08 07:55] LABS: Basophils Percent Auto 0.3 % (0-2); Eosinophils Absolute Auto 0.3 X10*3/uL (0.0-0.4); Eosinophils Percent Auto 3.4 % (0-4); Hematocrit 30.8 % (37-47); Hemoglobin 9.4 g/dl (12.0-16.0); Lymphocytes Absolute Auto 1.1 X10*3/uL (1.2-4.9); Lymphocytes Percent Auto 10.9 % (20-40); Mean Corpuscular HGB Conc 30.5 g/dl (31.0-35.0); Mean Corpuscular Hemoglobin 28.5 pg (27.0-33.0); Mean Corpuscular Volume 93.3 fL (80-98); Mean Platelet Volume 9.4 fL (9.4-12.3); Monocytes Absolute Auto 0.5 X10*3/uL (0.1-1.2); Monocytes Percent Auto 4.7 % (2-11); Neutrophils Absolute Auto 7.8 X10*3/uL (2.0-8.3); Neutrophils Percent Auto 79.7 % (45-73); Platelet Count 264 X10*3/uL (160-400); Red Cell Distribution Width 16.4 % (11.0-16.0); White Blood Count 9.7 X10*3/uL (4.8-10.8)
[2021-05-08 08:18] LABS: Alanine Aminotransferase 6 U/L (0-31); Albumin Level 2.3 g/dL (3.5-5.0); Alkaline Phosphatase 225 U/L (39-117); Anion Gap 15 (12-20); Aspartate Amino Transferase 7 U/L (5-31); Bilirubin Total 0.4 mg/dL (0.0-1.0); Blood Urea Nitrogen 20 mg/dL (9-16); Carbon Dioxide 28 mmol/L (22-29); Chloride 96 mmol/L (96-108); Estimated Glomerular Filt Rate 15; Glucose Random 118 mg/dL (60-115); Potassium 3.2 mmol/L (3.3-5.1); Sodium 136 mmol/L (135-145)
== END 2021-05-08 07:12 | disposition home or self-care (01) ==
LOC: HO.MMNH2L 07:11
PROVIDERS: Visit Provider Family Medicine
DX: I10 Essential (primary) hypertension (principal)
CPT/HCPCS: 36415; 80053; 85025

== ENCOUNTER 2021-05-11 00:22 | Outpatient (REF) | payer SELFPAY ==
[2021-05-11 06:31] LABS: MANUAL DIFF FLAG NO
[2021-05-11 06:52] LABS: Basophils Percent Auto 0.4 % (0-2); Eosinophils Absolute Auto 0.3 X10*3/uL (0.0-0.4); Eosinophils Percent Auto 3.1 % (0-4); Hematocrit 30.9 % (37-47); Hemoglobin 9.4 g/dl (12.0-16.0); Imm Gran Abs Auto 0.09 X10*3/uL (0.00-0.03); Imm Gran Pct Auto 0.8 % (0.0-0.4); Lymphocytes Absolute Auto 1.2 X10*3/uL (1.2-4.9); Lymphocytes Percent Auto 11.2 % (20-40); Mean Corpuscular HGB Conc 30.4 g/dl (31.0-35.0); Mean Corpuscular Hemoglobin 28.1 pg (27.0-33.0); Mean Corpuscular Volume 92.5 fL (80-98); Mean Platelet Volume 9.2 fL (9.4-12.3); Monocytes Absolute Auto 0.7 X10*3/uL (0.1-1.2); Monocytes Percent Auto 6.2 % (2-11); Neutrophils Absolute Auto 8.4 X10*3/uL (2.0-8.3); Neutrophils Percent Auto 78.3 % (45-73); Platelet Count 303 X10*3/uL (160-400); Red Blood Count 3.34 X10*6/uL (4.20-5.50); Red Cell Distribution Width 16.4 % (11.0-16.0); White Blood Count 10.8 X10*3/uL (4.8-10.8)
[2021-05-11 07:08] LABS: Alanine Aminotransferase < 6 U/L (0-31); Albumin Level 2.5 g/dL (3.5-5.0); Alkaline Phosphatase 206 U/L (39-117); Anion Gap 20 (12-20); Aspartate Amino Transferase 7 U/L (5-31); Bilirubin Total 0.6 mg/dL (0.0-1.0); Blood Urea Nitrogen 29 mg/dL (9-16); Calcium 7.1 mg/dL (8.4-10.2); Carbon Dioxide 25 mmol/L (22-29); Chloride 95 mmol/L (96-108); Estimated Glomerular Filt Rate 11; Glucose Random 95 mg/dL (60-115); Potassium 4.2 mmol/L (3.3-5.1); Sodium 136 mmol/L (135-145)
== END 2021-05-11 00:23 | disposition home or self-care (01) ==
LOC: HO.MMNH2L 00:22
PROVIDERS: Visit Provider Family Medicine
DX: I10 Essential (primary) hypertension (principal)
CPT/HCPCS: 36415; 80053; 85025

== ENCOUNTER 2021-06-30 07:15 | Outpatient (REF) | payer MEDICAID, SELFPAY | END 2021-06-30 07:16 | disposition home or self-care (01) | LOC: HO.MMNH2L 07:15 | PROVIDERS: Visit Provider Family Medicine | DX: Z13.89 Encounter for screening for other disorder (principal) ==

== ENCOUNTER 2021-08-04 | Outpatient (REF) | payer MEDICARE, SELFPAY ==
[2021-08-04 06:16] LABS: Hematocrit 30.1 % (37.0-47.0); Hemoglobin 9.2 g/dl (12.0-16.0); Mean Corpuscular HGB Conc 30.6 g/dl (31.0-35.0); Mean Corpuscular Hemoglobin 26.9 pg (27.0-33.0); Mean Platelet Volume 9.5 fL (9.4-12.3); Platelet Count 358 X10*3/uL (160-400); Red Blood Count 3.42 X10*6/uL (4.20-5.50); Red Cell Distribution Width 16.8 % (11.0-16.0); White Blood Count 7.8 X10*3/uL (4.8-10.8)
[2021-08-04 07:36] LABS: Erythrocyte Sedimentation Rate 105 MM/HR (0-20)
[2021-08-04 08:00] LABS: Alanine Aminotransferase 10 U/L (0-31); Albumin Level 2.7 g/dL (3.5-5.0); Alkaline Phosphatase 118 U/L (39-117); Anion Gap 25 (12-20); Aspartate Amino Transferase 10 U/L (5-31); Bilirubin Total 0.5 mg/dL (0.0-1.0); Blood Urea Nitrogen 124 mg/dL (9-16); C Reactive Protein 18.96 mg/dL (< or = 0.50); Calcium 8.1 mg/dL (8.4-10.2); Carbon Dioxide 17 mmol/L (22-29); Chloride 95 mmol/L (96-108); Estimated Glomerular Filt Rate 5; Glucose Random 112 mg/dL (60-115); Potassium 4.9 mmol/L (3.3-5.1); Sodium 132 mmol/L (135-145); Total Protein 6.7 g/dL (6.5-8.0)
== END 2021-08-04 00:01 | disposition home or self-care (01) ==
LOC: HO.MMNH2L
PROVIDERS: Visit Provider Family Medicine
DX: T84.52XD Infection and inflammatory reaction due to internal left hip prosthesis, subsequent encounter (principal)
CPT/HCPCS: 36415; 80053; 85027; 85652; 86140